=== PATIENT | female | born 1965 ===

== ENCOUNTER 2019-11-22 18:18 | Emergency (ER) | payer MEDICAID ==
[2019-11-22] MEDS ORDERED: ACETAMINOPHEN 500 MG TAB PO ONE (19:40)
--- NOTE | 2019-11-22 19:45 | Emergency Department Report ---
ED Fall HPI - General Chief Complaint: Extremity Injury, Upper Stated Complaint: ELBOW PAIN Source: patient Mode of arrival: Ambulatory - History of Present Illness Initial Comments: Patient is a 54-year-old white female with a history of hypertension and chronic osteoarthritis and chronic low back pain who presents to the ED with complaint of acute exacerbation of her chronic low back pain and bilateral elbow pain after she tripped when climbing the stairs about 2 weeks ago. Patient states that she could not come to the hospital for evaluation because of coronavirus pandemic outbreak and therefore has been taking [id number] Aleve as needed for pain. Patient denies head or neck injuries, numbness and tingling or weakness of upper and lower extremities bilaterally, urinary or bowel incon tinence, saddle paresthesia, chest pain, shortness of breath, dizziness or syncope and seizures. MD Complaint: fall, other (Bilateral elbow pain; Worsening lower back pain) -: Sudden, week(s) (2) Fall From: down stairs (#) (tri[place] and [place] When Fall Occurred: # days [employer] ( ago) Fall Witnessed: yes, by bystander Place Fall Occurred: street Loss of Consciousness: none Prolonged Down Time?: no Symptoms Prior to Fall: none Location: back (lower), other (Bilateral elbows) Location - Extremities: Left: Elbow (Pain), Right: Elbow Severity: moderate Severity scale (0 -10): 5 Quality: sharp, aching Context: tripped/slipped Associated Symptoms: denies. denies: headache, neck pain, numbness, weakness, chest paint, shortness of breath, abdominal pain, hematuria, unable to walk, lightheaded, vertigo, confusion, other - Related Data Previous Rx's Medication Instructions Recorded Last Taken Type Naproxen 500 mg PO Q12H PRN #30 tablet 11/22/19 Unknown Rx predniSONE [Deltasone] 40 mg PO QDAY #10 tab 11/22/19 Unknown Rx Allergies Allergy/AdvReac Type Severity Reaction Status Date / Time No Known Allergies Allergy Verified 11/22/19 20:40 ED Review of Systems ROS: Stated complaint: ELBOW PAIN Other details as noted in HPI Constitutional: denies: chills, fever Eyes: denies: eye pain, eye discharge, vision change ENT: denies: ear pain, throat pain Respiratory: denies: cough, shortness of breath, wheezing Cardiovascular: denies: chest pain, palpitations Endocrine: no symptoms reported Gastrointestinal: denies: abdominal pain, nausea, diarrhea Genitourinary: denies: urgency, dysuria, discharge Musculoskeletal: back pain (lower), arthralgia (Bilateral elbow pain). denies: joint swelling Skin: denies: rash, lesions Neurological: denies: headache, weakness, paresthesias Psychiatric: denies: anxiety, depression Hematological/Lymphatic: denies: easy bleeding, easy bruising ED Past Medical Hx - Past Medical History Previous Medical History?: Yes Hx Hypertension: Yes Hx Asthma: Yes - Social History Smoking Status: Never Smoker Substance Use Type: None - Medications Home Medications: Home Medications Medication Instructions Recorded Confirmed Last Taken Type Naproxen 500 mg PO Q12H PRN #30 tablet 11/22/19 Unknown Rx predniSONE [Deltasone] 40 mg PO QDAY #10 tab 11/22/19 Unknown Rx ED Physical Exam - General Limitations: No Limitations General appearance: alert, in no apparent distress - Head Head exam: Present: atraumatic, normocephalic, normal inspection - Eye Eye exam: Present: normal appearance, PERRL, EOMI Pupils: Present: normal accommodation - ENT ENT exam: Present: normal exam, normal orophraynx, mucous membranes moist, TM's normal bilaterally, normal external ear exam - Neck Neck exam: Present: normal inspection, full ROM. Absent: tenderness, lymphadenopathy - Respiratory Respiratory exam: Present: normal lung sounds bilaterally. Absent: respiratory distress, wheezes, rales, rhonchi, chest wall tenderness, accessory muscle use, decreased breath sounds - Cardiovascular Cardiovascular Exam: Present: regular rate, normal rhythm, normal heart sounds. Absent: systolic murmur, diastolic murmur, rubs, gallop - GI/Abdominal GI/Abdominal exam: Present: soft, normal bowel sounds. Absent: tenderness, guarding, rebound, hyperactive bowel sounds, hypoactive bowel sounds, organomegaly - Extremities Exam Extremities exam: Present: normal inspection, full ROM, tenderness (Palpable bilateral elbow tenderness), normal capillary refill - Back Exam Back exam: Present: normal inspection, full ROM, tenderness (Palpable lumbosacral paraspinal musculoskeletal tenderness), muscle spasm, paraspinal tenderness - Neurological Exam Neurological exam: Present: alert, oriented X3, CN II-XII intact, normal gait, reflexes normal - Psychiatric Psychiatric exam: Present: normal affect, normal mood - Skin Skin exam: Present: warm, dry, intact, normal color. Absent: rash ED Course Vital Signs 11/22/19 18:27 Temperature 98.5 F Pulse Rate 78 Respiratory 20 Rate Blood Pressure 155/78 O2 Sat by Pulse 97 Oximetry ED Medical Decision Making - Radiology Data Radiology results: report reviewed, image reviewed Findings [facility] [address] [place] [address] XRay Report Signed Patient: LAURA DANIELSON MR#: [id number] : 1965 Acct:[id number] Age/Sex: 54 / F ADM Date: 11/22/19 Loc: ED Attending Dr: Ordering Physician: EVAN BHAKTA Date of Service: 11/22/19 Procedure(s): XR spine lumbosacral 2-3V Accession Number(s): [id number] cc: EVAN BHAKTA Fluoro Time In Minutes: LUMBAR SPINE 3 VIEWS INDICATION / CLINICAL INFORMATION: Fall - Pain. COMPARISON: None available. FINDINGS: VERTEBRAE: No fracture. No significant malalignment. DISC SPACES:Mild discogenic degenerative disease L2-4. FACET JOINTS:Moderate facet degenerative disease L4-S1. ADDITIONAL FINDINGS: None. IMPRESSION: 1. No significant abnormality. Signer Name: Micah Carroll MD Signed: 11/22/2019 8:16 PM Workstation Name: [id number] Transcribed By: TL Dictated By: Micah Carroll MD Electronically Authenticated By: Micah Carroll MD Signed Date/Time: 11/22/192015 DD/ 15 TD/TT: Bilateral elbow x-rays x-rays show no acute fractures or subluxations. - Medical Decision Making This is a 54-year-old white female with a history of hypertension and chronic osteoarthritis and chronic low back pain who presents to the ED with complaint of acute exacerbation of her chronic low back pain and bilateral elbow pain after she tripped when climbing the stairs about 2 weeks ago. Patient states that she could not come to the hospital for evaluation because of coronavirus pandemic outbreak and therefore has been taking [id number] Aleve as needed for pain. In the ED, patient is alert and oriented x3 and is not in distress but appears to be in pain. Patient was treated for pain in the ED and bilateral elbow x-ray showed no acute fractures or subluxation but degenerative joint disease. The L-spine x-ray shows no acute fractures or subluxations but degenerative lumbar disc disease. On reevaluation, patient's pain is well controlled medications. Patient was discharged home on pain medications and advised to follow-up with her primary care physician in 5 to 7 days for reevaluation. Patient was advised to return to the ED immediately if symptoms get worse. - Differential Diagnosis Muscle strain; Elbow contusion; Elbow sprain; Back muscle spasm Critical care attestation.: If time is entered above; I have spent that time in minutes in the direct care of this critically ill patient, excluding procedure time. ED Disposition Clinical Impression: Spasm of muscle of lower back, Bilateral elbow joint pain Chronic lower back pain Qualifiers: Back pain laterality: bilateral Sciatica presence: without sciatica Qualified Code(s): M54.5 - Low back pain; G89.29 - Other chronic pain Disposition: TO HOME OR SELFCARE Is pt being admited?: No Does the pt Need Aspirin: No Condition: Stable Instructions: Muscle Spasm (ED), Chronic Back Pain (ED), Elbow Sprain (ED) Additional Instructions: All the x-rays show no acute fractures or subluxations. Therefore take pain medications with food, drink plenty of fluids and follow-up with your primary care physician in 5 to 7 days for reevaluation. Return to the ED immediately if symptoms get worse. Prescriptions: predniSONE [Deltasone] 40 mg PO QDAY #10 tab Naproxen 500 mg PO Q12H PRN #30 tablet PRN Reason: Pain , Severe (7-10) Referrals: TITA ROBERTO MD [Staff Physician] - 3-5 Days Time of Disposition: 22:20 Print Language: ESTONIAN
--- NOTE | 2019-11-22 20:20 | XRay Report ---
LEFT ELBOW 2 VIEWS RIGHT ELBOW 2 VIEWS INDICATION / CLINICAL INFORMATION: FALL - PAIN. COMPARISON: None available. FINDINGS: Left elbow: No fracture, dislocation or left elbow effusion is present. Moderate degenerative arthros is is seen within the humeral ulnar joint. Right elbow: No fracture, dislocation or right elbow effusion is present. The joint spaces are well p reserved. Signer Name: Micah Carroll MD Signed: 11/22/2019 8:16 PM Workstation Name: [id number]
--- NOTE | 2019-11-22 20:21 | XRay Report ---
LUMBAR SPINE 3 VIEWS INDICATION / CLINICAL INFORMATION: Fall - Pain. COMPARISON: None available. FINDINGS: VERTEBRAE: No fracture. No significant malalignment. DISC SPACES:Mild discogenic degenerative disease L2-4. FACET JOINTS:Moderate facet degenerative disease L4-S1. ADDITIONAL FINDINGS: None. IMPRESSION: 1. No significant abnormality. Signer Name: Micah Carroll MD Signed: 11/22/2019 8:16 PM Workstation Name: [id number]
[2019-11-23 13:36] VITALS: BP 145/99
== END 2019-11-22 22:33 | disposition home or self-care (01) ==
LOC: ED 18:18
DX: M25.521 Pain in right elbow (principal); M25.522 Pain in left elbow; M54.5 Low back pain; G89.29 Other chronic pain; M62.830 Muscle spasm of back; I10 Essential (primary) hypertension; J45.909 Unspecified asthma, uncomplicated; Z79.899 Other long term (current) drug therapy
CPT/HCPCS: 72100; 99283